=== PATIENT | male | born 2000 | race Hispanic/Latino ===

== ENCOUNTER 2023-07-08 15:51 | Emergency (ER) | payer SELFPAY ==
[2023-07-08 15:54] VITALS: BP 126/79; PULSE 72; TEMP 36.1; BMI 19.4
[2023-07-08 15:55] VITALS: BP 127/71; PULSE 74; RESP 22; TEMP 36.2; O2SAT 96; BMI 23.2
--- NOTE | 2023-07-08 16:03 | CT_ITS ---
EXAM: CT ABDOMEN AND PELVIS WITH INTRAVENOUS CONTRAST CLINICAL INDICATION: RLQ pain TECHNIQUE: Helically acquired images were obtained of the abdomen and pelvis with intravenous contrast. This CT exam was performed using one or more of the following dose reduction techniques: automated exposure control, adjustment of the mA and/or kV according to patient size, and/or use of iterative reconstruction technique. CONTRAST: IV 100mL Isovue-370 RADIATION DOSE: CTDIvol = 13.57 mGy, DLP = 321.55 mGy-cm COMPARISON: No relevant prior studies available. FINDINGS: LOWER THORAX: Unremarkable. Lung bases are clear. No cardiomegaly. No significant pericardial effusion. ABDOMEN: LIVER: Unremarkable. Homogeneous. No focal mass. GALLBLADDER AND BILE DUCTS: Unremarkable. No calcified gallstones. No gallbladder distention or wall edema. No intra- or extrahepatic biliary ductal dilation. PANCREAS: Unremarkable. No focal cystic or solid mass. SPLEEN: Unremarkable. Normal size without focal cystic or solid mass. ADRENALS: Unremarkable. No nodules. KIDNEYS AND URETERS: Unremarkable. Normal renal size and position. No hydronephrosis. STOMACH AND BOWEL: Focal wall thickening of the antrum of stomach. This can suggest a gastritis. There is an umbilical hernia containing fat. There is no bowel involvement. There is no incarceration. There is no findings suggesting that this is causing a bowel obstruction. PELVIS: APPENDIX: The appendix is visualized and is normal. BLADDER: Unremarkable. REPRODUCTIVE: Unremarkable as visualized. No mass. ABDOMEN and PELVIS: INTRAPERITONEAL SPACE: Unremarkable. No ascites or other fluid collection. No free air. BONES/JOINTS: Unremarkable. No suspicious lytic or blastic abnormality. SOFT TISSUES: See above. VASCULATURE: Unremarkable. Abdominal aorta is non-dilated. LYMPH NODES: Unremarkable. No enlarged lymph nodes. CT/Abdomen/Pelvis W IV Cont ONLY IMPRESSION: Focal wall thickening of the antrum of stomach. This can suggest a gastritis. Electronically Signed: Vance Fink MD at 17:40 EDT ,
[2023-07-08] MEDS: Ondansetron 4 MG/2 ML Vial IV (16:06)
[2023-07-08] MEDS: 0.9% Normal Saline 1,000 ML 999 ML IV (16:06)
[2023-07-08] MEDS: Ketorolac 15 MG/ML Vial IV (16:06)
--- NOTE | 2023-07-08 16:06 | ED.VIS.GI ---
HPI <EB Goins - Last Filed: 07/08/23 19:19> HPI - GI History of Present Illness Chief Complaint: Abd Pain Narrative Narrative: Patient presenting today with right lower quadrant pain that he has had over the past 3 days. At first the pain was intermittent but today became sharp and constant. He reports having 1 episode of loose stool early this morning as well as chills. He reports that he feels like he has to urinate right now but can't. Earlier today he was urinating normally without any dysuria or hematuria. He has had 1 episode of vomiting yesterday with nausea. He denies any previous abdominal surgery, fever, history of kidney stones. PFSH <EB Goins - Last Filed: 07/08/23 19:19> PFSH Home Medications ondansetron 4 mg disintegrating tablet 4 mg PO Q8H PRN PRN Nausea #10 tabs 07/08/23 [Rx Last Taken Unknown] Allergy/AdvReac Type Severity Reaction Status Date / Time Penicillins AdvReac PT UNSURE Verified 07/08/23 16:01 OF REACTION Social History Smoking Status: Never smoker ROS <EB Goins - Last Filed: 07/08/23 19:19> ROS ED Constitutional Constitutional ED: Denies chills, fever(s) or sweats Eyes Eyes: Denies blurry vision or diplopia Cardiovascular Cardiovascular: Denies chest pain or palpitations Respiratory/Chest Respiratory/Chest: Denies cough or dyspnea Gastrointestinal Gastrointestinal: Reports abdominal pain, nausea and vomiting; Denies constipation or diarrhea Genitourinary Genitourinary ED: Reports urinary hesitancy; Denies dysuria, hematuria or urinary urgency Musculoskeletal Musculoskeletal: Denies arthralgias, back pain or myalgias Integumentary Denies rash Neurologic Neurologic: Denies weakness EXAM <EB Goins - Last Filed: 07/08/23 19:19> Physical Exam Const Vital Signs: 07/08/23 15:54 07/08/23 15:55 07/08/23 17:49 Temperature 97 F L 97.1 F L Temperature Source Temporal Temporal Pulse Rate 72 74 74 Respiratory Rate 22 H 16 Blood Pressure 126/79 H 127/71 H Blood Pressure Mean 94 89 Pulse Ox 96 98 Oxygen Delivery Method Room Air Room Air Positive well nourished, well developed and no apparent distress General Appearance ED: well developed HEENT Reports normocephalic and head/scalp atraumatic Mouth ED: Yes moist mucous membranes normal Eyes PERRL and EOMs intact bilaterally Neck full ROM and supple Chest Wall inspection of chest normal Resp normal respiratory effort and clear to auscultation bilaterally Cardio regular rate and regular rhythm GI soft to palpation, non-distended and no masses GI Narrative: Mild right lower quadrant tenderness to palpation without any rigidity or guarding, negative Rovsing sign. Back/Spine normal ROM and normal to inspection Extremity normal to inspection and full ROM Neuro oriented x3, CN's II-XII intact bilaterally, moves all extremities, no focal motor deficits and no sensory deficits noted Sensorium / Orientation: awake and alert Psych mental status grossly normal and thought process normal Skin no rashes or lesions noted and no wounds <Dr. Eugene Dumont MD - Last Filed: 07/08/23 16:12> Physical Exam Const Vital Signs: 07/08/23 15:54 07/08/23 15:55 07/08/23 17:49 Temperature 97 F L 97.1 F L Temperature Source Temporal Temporal Pulse Rate 72 74 74 Respiratory Rate 22 H 16 Blood Pressure 126/79 H 127/71 H Blood Pressure Mean 94 89 Pulse Ox 96 98 Oxygen Delivery Method Room Air Room Air MDM <EB Goins - Last Filed: 07/08/23 19:19> [facility] Narrative Medical decision making narrative: Patient presenting today with pain to his right lower quadrant that started 3 days ago intermittently, today became more constant. He has had 1 episode of vomiting with associated nausea since yesterday. Patient does appear uncomfortable and is grabbing his right lower quadrant, however his belly is very benign on exam, he is very mildly tender to the right lower quadrant but barely. He did mention that he feels like he needs to urinate but cannot and that just started since being here in the ED. He has not had any other associated urinary symptoms. Labs will be obtained to rule out leukocytosis, anemia, electrolyte abnormality, and UTI. CT of the abdomen and pelvis will be obtained to rule out appendicitis, kidney stone, and other etiology. He was given additional pain control. CT suggest gastritis however patient is experiencing any pain to his epigastrium. He does have hematuria, it is possible that patient passed a kidney stone. On reexamination he reports improvement of his symptoms. He has been given a GI follow-up if necessary and will be discharged home in stable condition. He is comfortable with plan and has been given return instructions. He has been given a prescription for Zofran. I have personally performed a face to face assessment of the patient and have reviewed the CLAY Note. I performed a substantive portion of the visit including all aspects of the following. My barr findings include: History is 23-year-old male right lower quadrant abdominal pain. No prior history. No prior abdominal surgeries. Dad had a history of kidney stones patient's never had 1. Denies any dysuria or hematuria. No fever. Exam is [23-year-old male appears uncomfortable. Vital signs stable afebrile. HEENT exam unremarkable. Lungs are clear. Heart regular rhythm no murmur. Abdomen soft, nontender, nondistended normal bowel sounds no peritoneal signs. No reproducible abdominal pain. No McBurney's point or Tamayo sign tenderness. No signs of trauma. No hernia. No mass. No distention. External exam nontender. Moving all 4 extremities. Back nontender. He is awake and alert.] Medical Decision Making [23-year-old male right lower quadrant abdominal pain is totally not reproducible. Possibly a kidney stone. Unlikely but possibly appendicitis. CAT scan and labs are pending. Toradol for pain. IV Zofran.] Other additions or changes: [None] Lab Data Labs: Laboratory Results - last 24 hr 07/08/23 07/08/23 15:58 16:53 WBC 8.0 RBC 5.50 Hgb 15.4 Hct 48.0 MCV 87.3 MCH 28.0 MCHC 32.1 RDW Std Deviation 37.4 RDW Coeff of [place] 11.6 Plt Count 265 MPV 11.3 Immature Gran % (Auto) 0.400 Neut % (Auto) 50.3 Lymph % (Auto) 40.4 [place] % (Auto) 7.5 Eos % (Auto) 0.6 Baso % (Auto) 0.8 Absolute Neuts (auto) 4.0 Absolute Lymphs (auto) 3.21 Nucleated RBC % 0 Sodium 139 Potassium 4.0 Chloride 106 Carbon Dioxide 25.0 Anion Gap 8 BUN 16 Creatinine 1.09 Estim Creat Clear Calc 73.27 Est GFR (MDRD) Af Amer 106 Est GFR (MDRD) Non-Af 87 BUN/Creatinine Ratio 14.7 Glucose 127 H Calcium 9.4 Total Bilirubin 1.00 AST 18 ALT 17 Alkaline Phosphatase 104 Total Protein 7.8 Albumin 4.4 Globulin 3.4 Albumin/Globulin Ratio 1.3 Urine Color Yellow Urine Clarity Sl. Cloudy Urine pH 5.0 Ur Specific [place] 1.020 Urine Protein 30 H Urine Glucose (UA) Normal Urine Ketones 5 H Urine Occult Blood 250 H Urine Nitrite Negative Urine Bilirubin Negative Urine Urobilinogen Normal Ur Leukocyte Esterase Negative Urine RBC 10-25 SEEN Urine WBC 0-5 SEEN Ur Squamous Epith Cells 0 SEEN Urine Bacteria 0 SEEN Urine Mucus 0 SEEN Radiography Diagnostic Testing: Clinical Impression(s) from Imaging Studies Abdomen/Pelvis CT 07/08/23 16:03 IMPRESSION: Focal wall thickening of the antrum of stomach. This can suggest a gastritis. Electronically Signed: Vance Fink MD at 17:40 EDT Reading Location ID and State: [facility] / [place] , Service support , <Dr. Eugene Dumont MD - Last Filed: 07/08/23 16:12> [facility] MDM Narrative Medical decision making narrative: I have personally performed a face to face assessment of the patient and have reviewed the CLAY Note. I performed a substantive portion of the visit including all aspects of the following. My barr findings include: History is 23-year-old male right lower quadrant abdominal pain. No prior history. No prior abdominal surgeries. Dad had a history of kidney stones patient's never had 1. Denies any dysuria or hematuria. No fever. Exam is [23-year-old male appears uncomfortable. Vital signs stable afebrile. HEENT exam unremarkable. Lungs are clear. Heart regular rhythm no murmur. Abdomen soft, nontender, nondistended normal bowel sounds no peritoneal signs. No reproducible abdominal pain. No McBurney's point or Tamayo sign tenderness. No signs of trauma. No hernia. No mass. No distention. External exam nontender. Moving all 4 extremities. Back nontender. He is awake and alert.] Medical Decision Making [23-year-old male right lower quadrant abdominal pain is totally not reproducible. Possibly a kidney stone. Unlikely but possibly appendicitis. CAT scan and labs are pending. Toradol for pain. IV Zofran.] Other additions or changes: [None] History & Record Review Discussion w/independent historian: Patient Additional record(s) reviewed:: No prior records Lab Data Labs: Laboratory Results - last 24 hr 07/08/23 07/08/23 15:58 16:53 WBC 8.0 RBC 5.50 Hgb 15.4 Hct 48.0 MCV 87.3 MCH 28.0 MCHC 32.1 RDW Std Deviation 37.4 RDW Coeff of [place] 11.6 Plt Count 265 MPV 11.3 Immature Gran % (Auto) 0.400 Neut % (Auto) 50.3 Lymph % (Auto) 40.4 [place] % (Auto) 7.5 Eos % (Auto) 0.6 Baso % (Auto) 0.8 Absolute Neuts (auto) 4.0 Absolute Lymphs (auto) 3.21 Nucleated RBC % 0 Sodium 139 Potassium 4.0 Chloride 106 Carbon Dioxide 25.0 Anion Gap 8 BUN 16 Creatinine 1.09 Estim Creat Clear Calc 73.27 Est GFR (MDRD) Af Amer 106 Est GFR (MDRD) Non-Af 87 BUN/Creatinine Ratio 14.7 Glucose 127 H Calcium 9.4 Total Bilirubin 1.00 AST 18 ALT 17 Alkaline Phosphatase 104 Total Protein 7.8 Albumin 4.4 Globulin 3.4 Albumin/Globulin Ratio 1.3 Urine Color Yellow Urine Clarity Sl. Cloudy Urine pH 5.0 Ur Specific [place] 1.020 Urine Protein 30 H Urine Glucose (UA) Normal Urine Ketones 5 H Urine Occult Blood 250 H Urine Nitrite Negative Urine Bilirubin Negative Urine Urobilinogen Normal Ur Leukocyte Esterase Negative Urine RBC 10-25 SEEN Urine WBC 0-5 SEEN Ur Squamous Epith Cells 0 SEEN Urine Bacteria 0 SEEN Urine Mucus 0 SEEN Radiography Diagnostic Testing: Clinical Impression(s) from Imaging Studies Abdomen/Pelvis CT 07/08/23 16:03 IMPRESSION: Focal wall thickening of the antrum of stomach. This can suggest a gastritis. Electronically Signed: Vance Fink MD at 17:40 EDT , Discharge Plan Triage Chief Complaint: Abd Pain ED Midlevel Provider: Faye Ferreira ED Provider: Eugene Dumont Dx/Rx/DC Orders Clinical Impression: Nausea & vomiting, Abdominal pain Instructions: Abdominal Pain Prescriptions: New ondansetron 4 mg tablet,disintegrating 4 mg PO Q8H PRN PRN (Reason: Nausea) Qty: 10 0RF Primary Care Provider: Care Physician,No Primary Referrals: Friend,Tima, DO [Med Staff - Active Staff] - 1 Week if not improving Care Physician,No Primary [Primary Care Provider] - Activity Restrictions/Additional Instructions: Please follow-up with GI and return for any worsening of your symptoms. Disposition Disposition: Home, Self Care Discharge Date/Time: 07/08/23 18:01
[2023-07-08 16:21] LABS: Absolute Lymphocyte Count 3.21 X10^3/uL (0.83-4.51); Basophil# 0.06 X10^3/uL; Basophil% 0.8 % (0-1); Eosinophil# 0.05 X10^3/uL; Eosinophils% 0.6 % (0-5); Hemoglobin 15.4 g/dL (13.0-16.5); Lymphocyte # 3.21 X10^3/ul (0.83-4.51); Lymphocyte % 40.4 % (19-41); Mean Corp Hgb Conc 32.1 g/dL (32-36); Mean Corpuscular Volume 87.3 fL (80-94); Mean Platelet Vol. 11.3 fl (6.2-12.0); Monocyte% 7.5 % (0-10); NRBC Flagged by Analyzer 0 % (0-5); Neutrophil % 50.3 % (47-70); Platelet Count 265 K/mm3 (150-450); RBC Distribution Width CV 11.6 % (11.6-14.6); RBC Distribution Width SD 37.4 fl (35.1-43.9)
[2023-07-08] MEDS: morphine 8 MG/ML Syringe IV (16:25)
[2023-07-08 16:41] LABS: ALB/GLOB Ratio 1.3 RATIO (0.9-2.4); AST(SGOT) 18 U/L (15-37); Alanine Aminotransfer ALT/SGPT 17 U/L (16-61); Albumin, Serum 4.4 g/dL (3.2-5.0); Alkaline Phosphatase 104 U/L (45-117); Anion Gap 8 (5-15); BUN 16 mg/dL (7-18); BUN/Creat Ratio 14.7 RATIO (10-20); Calcium,Total 9.4 mg/dL (8.5-10.1); Chloride 106 mmol/L (98-107); Creatinine, Serum 1.09 mg/dL (0.70-1.30); EST Glomerular Filtration Rate 87 mL/min (>60); Est Glom Filt Rate - Afr Amer 106 mL/min (>60); Estimated Creatinine Clearance 73.27 ml/min; Globulin 3.4 g/dL (2.2-4.2); Glucose 127 mg/dL (74-106); Protein, Total 7.8 g/dL (6.4-8.2); Sodium Level 139 mmol/L (136-145)
[2023-07-08 17:03] LABS: Bacteria 0 SEEN /hpf (None Seen); Mucous, Urine 0 SEEN /hpf (<or=2+); Squamous Epithelial Cells - UA 0 SEEN /hpf (0-5)
[2023-07-08 17:06] LABS: Color, Urine Yellow (Yellow); Glucose, Dipstick Normal (Normal); Ketone-Dipstick 5 mg/dl (Negative); Leukocyte Esterase-Dipstick Negative /ul (Negative); Nitrite-Dipstick Negative (Negative); Occult Blood-Urine 250 /ul (Negative); Protein-Dipstick 30 mg/dl (Negative); Urine Bilirubin Dipstick Negative (Negative); Urine Clarity Sl. Cloudy (Clear); Urine Urobilinogen Normal (Normal)
[2023-07-08 17:25] LABS: White Blood Cells 0-5 SEEN /hpf (0-5)
[2023-07-08 17:26] LABS: Red Blood Cells-Urine 10-25 SEEN /hpf (0-5)
[2023-07-08 17:49] VITALS: PULSE 74; RESP 16; O2SAT 98
== END 2023-07-08 18:01 | disposition home or self-care (01) ==
PROVIDERS: Physician Assistant; Emergency Provider Emergency Medicine; Visit Provider Emergency Medicine
DX: R10.31 Right lower quadrant pain (principal); R31.9 Hematuria, unspecified; R11.2 Nausea with vomiting, unspecified; R39.11 Hesitancy of micturition
CPT/HCPCS: 74177; 80053; 81001; 85025; 96361; 96374; 96375; 99282; Q9967; J2405

== ENCOUNTER 2023-07-09 14:42 | Emergency (ER) | payer SELFPAY ==
[2023-07-09 14:42] VITALS: BP 114/84; PULSE 69; RESP 18; TEMP 36.4; O2SAT 99; BMI 22.7
[2023-07-09 17:08] VITALS: BP 104/68; PULSE 68; RESP 18; O2SAT 99
--- NOTE | 2023-07-09 19:05 | ED.VIS.GI ---
HPI HPI - GI History of Present Illness Chief Complaint: Flank Pain Detail of Chief Complaint: Right flank pain. Seen yesterday had extensive work-up. Informant: patient Abdominal Pain/Flank Pain Onset: Days Context: Gradual Onset Timing: Intermittent Quality: Cramping Location: RLQ and Right Flank Current Severity: Gone Maximum Severity: Moderate Worsened by: Nothing Relieved by: Nothing Nausea/Vomiting/Emesis GI Symptom: Negative for Nausea or Vomiting Diarrhea/Melena/Hematochezia GI Symptom: Positive for Diarrhea; Negative for Melena or Hematochezia Onset: Days Stool Quality: Positive for Loose Severity: Mild Associated Symptoms Associated Symptoms: Negative for Dysuria, Frequency, Hematuria or Urgency Narrative Narrative: 23-year-old male no signet past medical history. No prior abdominal surgeries. Was seen here yesterday for right flank right lower quadrant abdominal pain. An extensive work-up that only showed blood in his urine. It was felt that he may have passed a kidney stone. His appendix was normal on the CAT scan. His labs were unremarkable with a normal white count. His urine was not infected. I did not see any stones on the CAT scan today he has recurrent pain but currently is pain-free. The pain has been intermittent for 4 days. He is never had any prior abdominal surgeries. He denies any abdominal trauma. Prior similar symptoms: Yes Recent Illness/Hospitalization: No PFSH PFSH Medical History Kidney stone Home Medications ondansetron 4 mg disintegrating tablet 4 mg PO Q8H PRN PRN Nausea #10 tabs 07/08/23 [Rx Last Taken Unknown] ibuprofen 800 mg tablet 800 mg PO DAILY 07/09/23 [History Last Taken Unknown] Allergy/AdvReac Type Severity Reaction Status Date / Time Penicillins AdvReac PT UNSURE Verified 07/08/23 16:01 OF REACTION Social History Smoking Status: Never smoker ROS ROS ED ROS Narrative Abdominal pain. Loose stools. Review of Systems ROS Unobtainable: Denies due to encephalopathy Constitutional Constitutional ED: Denies chills or fever(s) ENT ENT ED: Denies ear pain Cardiovascular Cardiovascular: Denies chest pain Respiratory/Chest Respiratory/Chest: Denies cough or dyspnea Gastrointestinal Gastrointestinal: Reports abdominal pain and diarrhea; Denies constipation, melena, nausea or vomiting Genitourinary Genitourinary ED: Denies dysuria or hematuria Musculoskeletal Musculoskeletal: Denies arthralgias Integumentary Denies abscess Neurologic Neurologic: Denies headache(s) Psychiatric Psychiatric: Denies anxiety or depression Endocrine Endocrinology: Denies polydipsia Hematologic/Lymphatic Hematologic/Lymphatic: Denies easy bleeding Allergic/Immunologic Allergic/Immunologic ED: Denies mouth swelling EXAM Physical Exam Narrative Exam Narrative: Well-appearing 23-year-old male vital signs stable afebrile currently is completely pain-free. H EENT exam unremarkable. Neck nontender. Lungs clear to auscultation. Heart regular rhythm rate about 65 no murmur. Chest nontender. Abdomen soft nontender. Normal bowel sounds no peritoneal signs. Right upper right lower quadrant completely unremarkable. No hernia or mass. No distention. External exam circumcised. No hernia. Nontender. No lymphadenopathy. Back nontender. Moving all 4 extremities. Neurologic exam normal. Currently he is completely pain-free. He is resting comfortably. His exam is benign. Const Vital Signs: 07/09/23 14:42 07/09/23 17:08 07/09/23 19:14 Temperature 97.5 F L 97.6 F L Temperature Source Temporal Oral Pulse Rate 69 68 64 Respiratory Rate 18 18 18 Blood Pressure 114/84 H 104/68 107/72 Blood Pressure Mean 94 80 83 Pulse Ox 99 99 99 Oxygen Delivery Method Room Air Room Air Room Air 07/09/23 19:14 Temperature 97.6 F L Temperature Source Pulse Rate 64 Respiratory Rate 18 Blood Pressure 107/72 Blood Pressure Mean Pulse Ox 99 Oxygen Delivery Method Positive well nourished and well developed; Negative for obese, cachectic, contractures or unkempt General Appearance ED: well developed and NAD; Negative for unkempt, cachectic, contractures or pallor Nutritional Appearance: Negative for cachectic or obese HEENT Reports moist mucous membranes normocephalic and atraumatic; Negative for trauma or tenderness Eyes PERRL and EOMs intact bilaterally General Eye ED: Negative for pale conjunctiva or scleral icterus Neck no lymphadenopathy, supple and no JVD General: Negative for tenderness Carotids: Negative for other Lymph Lymphatic: Negative for other Resp normal respiratory effort and clear to auscultation bilaterally Effort and Inspection: Negative for respiratory distress Auscultation: Negative for rales, rhonchi or wheezes Cardio regular rate, regular rhythm, S1 normal heart sound, S2 normal heart sound and no murmurs GI non-tender, non-distended and no masses Inspection: Negative for abdominal distention Auscultation: normoactive bowel sounds Palpation: soft; Negative for tender, guarding, rigid, hepatomegaly, splenomegaly, hernia, mass, pulsatile mass or rebound tenderness present Narrative: External exam normal. Nontender. No mass. No swelling. No lymphadenopathy. No hernia. Back/Spine no CVA tenderness General Back: Negative for CVA tenderness Cervical Spine: Negative for cervical spine tenderness Thoracic Spine / Upper Back: Negative for thoracic spinal tenderness Lumbar Spine / Lower Back: Negative for lumbar spinal tenderness Coccyx: Negative for other Extremity full ROM General Extremety ED: Negative for edema or tenderness General Extremity: Negative for edema Neuro CN's II-XII intact bilaterally and moves all extremities Sensorium / Orientation: alert, oriented to person, oriented to place and oriented to time; Negative for orientation impaired or confused Motor Exam: strength 5/5 throughout Psych mental status grossly normal and thought process normal Appearance: Negative for unkempt Attitude: No agitated Mood & Affect: Negative for depressed, anxious or tearful Skin no wounds General Skin Exam: Negative for jaundice or pallor Lesions: no lesions Rashes: no rashes Trauma: Negative for abrasion Nails: Negative for discolored MDM MDM MDM Narrative Medical decision making narrative: 23-year-old with right flank and abdominal pain. Currently is completely pain-free. I reviewed his entire work-up from yesterday which was unremarkable other than some hematuria. I will recheck a UA I do not think he needs re-image. Yesterday they saw his appendix it was normal and he is completely nontender at this time. Repeat exam patient is doing well. Abdomen is completely benign. Will be discharged home. Follow-up with primary care physician. History & Record Review Discussion w/independent historian: Patient Additional record(s) reviewed:: Prior ED visit and Prior labs Lab Data Attestation: I reviewed the patient's lab results. Lab results narrative: Urinalysis shows hematuria but again no signs of infection. Unchanged from the urinalysis from yesterday. Labs: Laboratory Results - last 24 hr 07/09/23 19:21 Urine Color Yellow Urine Clarity Clear Urine pH 6.0 Ur Specific [place] 1.015 Urine Protein 15 H Urine Glucose (UA) Normal Urine Ketones 15 H Urine Occult Blood 250 H Urine Nitrite Negative Urine Bilirubin Negative Urine Urobilinogen Normal Ur Leukocyte Esterase 25 H Urine RBC 0-5 SEEN Urine WBC 0-5 SEEN Ur Squamous Epith Cells 0 SEEN Urine Bacteria 0 SEEN Urine Mucus 0 SEEN Discharge Plan Triage Chief Complaint: Flank Pain ED Provider: Eugene Dumont Dx/Rx/DC Orders Clinical Impression: Abdominal pain Instructions: Abdominal Pain Prescriptions: No Action ibuprofen 800 mg tablet 800 mg PO DAILY ondansetron 4 mg tablet,disintegrating 4 mg PO Q8H PRN PRN (Reason: Nausea) Qty: 10 0RF Primary Care Provider: Care Physician,No Primary Referrals: Steve Sanchez MD [Med Staff - [employer]] - As soon as possible Care Physician,No Primary [Primary Care Provider] - Activity Restrictions/Additional Instructions: I will recheck your urinalysis tonight if it is positive I will call you. I reviewed all your tests from yesterday of the blood in your urine everything was normal. Including your CAT scan. They did not see any kidney stones. They saw your appendix it was normal. Motrin and Tylenol for any pain. Follow-up with a doctor. If you are feeling worse increasing pain or fever return. I do not have a specific cause for your pain at this time. Disposition Disposition: Home, Self Care Discharge Date/Time: 07/09/23 19:22
[2023-07-09 19:14] VITALS: BP 107/72; PULSE 64; RESP 18; TEMP 36.4; O2SAT 99
[2023-07-09 19:26] LABS: Bacteria 0 SEEN /hpf (None Seen); Mucous, Urine 0 SEEN /hpf (<or=2+); Squamous Epithelial Cells - UA 0 SEEN /hpf (0-5)
[2023-07-09 19:27] LABS: Color, Urine Yellow (Yellow); Glucose, Dipstick Normal (Normal); Ketone-Dipstick 15 mg/dl (Negative); Leukocyte Esterase-Dipstick 25 /ul (Negative); Nitrite-Dipstick Negative (Negative); Occult Blood-Urine 250 /ul (Negative); Protein-Dipstick 15 mg/dl (Negative); Specific Gravity, Urine 1.015 (1.002-1.030); Urine Bilirubin Dipstick Negative (Negative); Urine Clarity Clear (Clear); Urine Urobilinogen Normal (Normal)
[2023-07-09 19:32] LABS: Red Blood Cells-Urine 0-5 SEEN /hpf (0-5); White Blood Cells 0-5 SEEN /hpf (0-5)
== END 2023-07-09 19:22 | disposition home or self-care (01) ==
PROVIDERS: Emergency Provider Emergency Medicine; Visit Provider Emergency Medicine
DX: R10.9 Unspecified abdominal pain (principal)
CPT/HCPCS: 81001; 99282